=== PATIENT | female | born 1940 | race Caucasian/White ===

== ENCOUNTER 2016-07-07 12:11 | Emergency (ER) | payer MEDICARE, OTHER ==
[2016-04-30 10:07] VITALS: BMI 19.9
[~2016-07-07 12:11] MED LIST: BAYER CHEWABLE81 MG PO; CALCIUM 500 + D1 TAB PO; COLACE100 MG PO; DEPAKOTE SPRIN125 MG PO; DULCOLAX5 MG PO; FISH OIL 500 MG1 CAP; FISH OIL 500 MG1 CAP PO; FLUTICASONE PRO16 GM NASAL; GLUCOSAMINE HC500 MG; GLUCOSAMINE HC500 MG PO; IBUPROFEN400 MG PO; LOZOL 2.5 MG T2.5 MG; MIRALAX17 GM PO; OMNICEF300 MG PO; PLAVIX75 MG PO; RYTHMOL225 MG PO; SYNTHROID100 MCG PO; SYNTHROID25 MCG; SYNTHROID25 MCG PO; SYNTHROID50 MCG PO; TRAZODONE HCL150 MG PO; XANAX0.5 MG PO; ZOLOFT25 MG PO; ZOLOFT50 MG PO
== END 2016-07-07 17:24 | disposition left against medical advice (07) ==
LOC: D.ER 12:11
DX: S72.001A Fracture of unspecified part of neck of right femur, initial encounter for closed fracture (principal); W01.0XXA Fall on same level from slipping, tripping and stumbling without subsequent striking against object, initial encounter; Y93.89 Activity, other specified; Y92.019 Unspecified place in single-family (private) house as the place of occurrence of the external cause; M25.561 Pain in right knee

== ENCOUNTER → 2016-11-19 18:03 | Outpatient (CLI) | payer MEDICARE, OTHER ==
[2016-04-30 10:07] VITALS: BMI 19.9
== END | disposition home or self-care (01) ==
LOC: D.CT 18:03
DX: K56.60 Unspecified intestinal obstruction (principal)

== ENCOUNTER 2016-11-19 20:35 | Inpatient (IN) | payer MEDICARE, OTHER ==
[~2016-11-19] VITALS: Ht 157.5 cm; Wt 50.9 kg
[2016-11-19 22:31] LABS: BASOPHILS 0.5 % (0-2); EOSINOPHILS 1.2 % (0-7); HEMATOCRIT 40.9 % (36.0-48.0); HEMOGLOBIN 13.9 g/dL (12-16); LYMPHOCYTES 35.7 % (15-50); MCH 33.3 pg (26.0-34.0); MCV 97.8 fL (80.0-100.0); MEAN PLATELET VOLUME 10.2 fL (7.4-10.4); NEUTROPHILS 53.6 % (40-80); RBC 4.18 10x6/uL (4.00-5.40); WBC 5.7 10x3/uL (4.8-10.8)
[2016-11-19 22:40] LABS: ALBUMIN 3.7 g/dL (3.4-5.0); ALKALINE PHOSPHATASE 58 U/L (46-116); ALT (SGPT) 20 U/L (10-68); CALC OSMOLALITY 274 mosm/kg (275-300); CALCIUM 8.7 mg/dL (8.5-10.1); CARBON DIOXIDE 28.2 mmol/L (21.0-32.0); CHLORIDE - SERUM 99 mmol/L (98-107); CREATININE - SERUM 0.6 mg/dL (0.6-1.3); GLUCOSE 85 mg/dL (74-106); POTASSIUM - SERUM 3.7 mmol/L (3.5-5.1); PROTEIN - SERUM 7.6 g/dL (6.4-8.2); SODIUM 137 mmol/L (136-145); UREA NITROGEN 18 mg/dL (7-18); eGFR NON AFRICAN AMERICAN > 90 mL/min (90-120)
[2016-11-19 22:57] LABS: PLATELET COUNT 205 10x3/uL (130-400)
--- NOTE | 2016-11-20 00:10 | NUR ---
RECEIVED PT FROM ER VIA WHEELCHAIR TO ROOM 1221. INTRODUCED SELF. V/S TAKEN. ROUTINE INITIAL ASSESSMENT AND HISTORY DONE. ORIENTED TO ROOM AND BED CONTROLS. STATUS BOWEL OBSTRUCTION. PLAN OF CARE INITIATED.
[2016-11-20 00:15] VITALS: BP 120/79; Ht 157.5 cm; Wt 50.9 kg
--- NOTE | 2016-11-20 01:30 | NUR ---
D5LR STARTED @ 100cc/hr VIA IV PUMP. NPO--PT AWARE. NO NAUSEA OR VOMITING NOTED.
--- NOTE | 2016-11-20 03:00 | NUR ---
EYES CLOSED. LEFT UNDISTURBED.
[2016-11-20 04:56] VITALS: BP 129/71
--- NOTE | 2016-11-20 06:10 | NUR ---
SLEPT FAIRLY DURING THE NIGHT. CONTINUING PLAN OF CARE.
[2016-11-20 07:05] VITALS: BP 113/67
--- NOTE | 2016-11-20 07:05 | NUR ---
BEDSIDE SHIFT REPORT RECEIVED. PT CURRENTLY AA&O X 4 SITTING UP IN BED. PT DENIES PAIN AT PRESENT. NEEDS ASSESSED. PT REQUEST A JENNIFER OF TISSUE, TOOTH BRUSH AND PASTE AND A COMB. ITEMS PROVIDED. SHIFT ASSESSMENT COMPLETED AT THIS TIME. BREATH SOUNDS CL\\=, ABD SOFT, NON DISTENDED AND PT DENIES TENDERNESS. PT REPORTS HAVING A SMALL LOOSE STOOL W/"SEVERAL" SMALL PIECES OF FORMED STOOL THIS AM. NO NAUSEA/VOMITING REPORTED. PEDAL PULSES PRESENT X 2. NO EDEMA NOTED TO LOWER EXTREMITIES. PT HAS FULL ROM. PIV TO R FOREARM WNL W/OUT REDNESS OR SWELLING. D5LR INFUSING AT 100ML/HR. AM SHIFT POC DISCUSSED W/PT. PT VERBALIZES UNDERSTANDING AND IS AGREEABLE. BED LOW, SIDE RAILS UP X 2. CALL LIGHT AND PHONE AT PT'S SIDE.
--- NOTE | 2016-11-20 08:00 | NUR ---
ROUNDS MADE. PT SITTING UP IN BED WATCHING TV. PT QUESTIONS WHEN MD WILL ROUND. PT INFORMED THIS RN UNSURE, BUT HOPEFULLY SOON. BED LOW, SIDE RAILS UP X 2. CALL LIGHT AND PHONE AT PT'S SIDE.
--- NOTE | 2016-11-20 08:42 | NUR ---
PT RINGS CALL LIGHT. THIS RN TO BEDSIDE. PT RQUESTING THIS RN CALL DR MURGUIA'S TO MAKE SURE MD KNOWS TO COME SEE PT. DR MURGUIA'S OFFICE CALLED. THIS RN INFORMED THAT MD SHOULD KNOW PT IS HERE, BUT OFFICE TO SEND A TEXT TO MD AND ELECTRIC SWITCH TESTER TO REMIND BOTH TO COME SEE PT. PT INFORMED.
--- NOTE | 2016-11-20 09:29 | NUR ---
ROUNDS MADE. PT LYING AWAKE IN BED WATCHING TV. DENIES PAIN OR NEEDS AT THIS TIME.
--- NOTE | 2016-11-20 11:23 | NUR ---
PT RETURNING FROM BR. REPORTS IV SEENS TO BE OOZING BLOOD. SITE INSPECTED. SCANT BLOOD NOTED. BANDAID PLACED OVER SITE. IV SITE WNL. W/OUT SWELLING, REDNESS OR TENDERNESS. PT DOES NOT WISH TEGADERM REMOVED FOR FURTHER INSPECTION AT THIS TIME. PT TO SITTING IN CHAIR AT SIDE OF BED.
[2016-11-20 12:15] VITALS: BP 99/76
--- NOTE | 2016-11-20 13:14 | NUR ---
PT REPORTS SHE SPOKE W/DR SHI'S OFFICE AND WAS ONCE AGAIN INFORMED THAT DR MURGUIA IS IN THE HOSPITAL AND IS AWARE THAT SHE NEEDS TO ROUND ON PT. PT REQUEST TO BE ABLE TO AMBULATE IN HALLS. PT ASSISTED W/DISCONNECTED PUMP. PT TO AMBULATE IN HALLS AT THIS TIME.
--- NOTE | 2016-11-20 13:30 | NUR ---
PT TO NURSING DESK REQUEST TO KNOW IF THIS RN HAS HEARD FROM THE ROUNDING MD. PT CONCERNED THAT SHE HAS NOT RECEIVED ANY OF THE MEDICATIONS THAT SHE NORMAL TAKES DAILY AT HOME. NPO TEACHING PROVIDED. PT REQUEST THIS RN CALL SOMEONE TO SEE WHEN A MD MAY BE TO SEE HER. [facility] CALLED AT 2150. INFORMED OF PT'S CONCERNS. SHERMAN WILLS RESPONDS W/SOMEONEWILL BE TO SEE HER TODAY. PT IFNFORMED. PT RETURNS TO BED TO READ. DENIES NEEDS AT THIST VIVIANA.
--- NOTE | 2016-11-20 14:00 | NUR ---
ROUNDS MADE. PT RESTING QUIETLY TO LEFT SIDE FACING AWAY FROM THE DOOR. RESP EVEN. PT LEFT UNDISTURBED AT THIS TIME.
--- NOTE | 2016-11-20 15:00 | NUR ---
PT UP AMBULATING IN ROOM. PT ASSISTED W/STRAIGTENING BLANKETS ON BED. PT RETURNS TO BED AT THIS TIME TO WATCH TV.
--- NOTE | 2016-11-20 15:42 | NUR ---
JOHNATHON FROM DR MURGUIA [facility] TO SEE PT AT THIS TIME.
--- NOTE | 2016-11-20 15:49 | NUR ---
lab here for blood specimen draw.
--- NOTE | 2016-11-20 15:55 | NUR ---
pharmacy called to bring protonix for admin at [email or web address] with
[2016-11-20 15:59] LABS: BASOPHILS 0.7 % (0-2); EOSINOPHILS 1.3 % (0-7); HEMOGLOBIN 14.1 g/dL (12-16); LYMPHOCYTES 35.6 % (15-50); MCH 32.9 pg (26.0-34.0); MCHC 33.6 g/dL (31.0-37.0); MCV 97.9 fL (80.0-100.0); MEAN PLATELET VOLUME 10.3 fL (7.4-10.4); MONOCYTES 11.2 % (2-11); NEUTROPHILS 51.2 % (40-80); PLATELET COUNT 204 10x3/uL (130-400); RBC 4.29 10x6/uL (4.00-5.40); RDW 13.9 % (11.5-14.5); WBC 4.5 10x3/uL (4.8-10.8)
[2016-11-20 16:10] LABS: AMYLASE - SERUM 41 U/L (25-115); LIPASE 209 U/L (73-393)
--- NOTE | 2016-11-20 16:30 | NUR ---
REC'D PT AMBULATORY FROM L&D TO ROOM 1223. PT PUSHING IN CRIB TO ROOM FOR PT'S ORDERED AMBULATION Q 2 TIMES DAILY. SIG OTHER W/PT. PT PAIN AND NEEDS ASSESSED. PT REPORTS MILD ABD DISCOMFORT, SHOULDER AND RT RIB PAIN. RATES INCISIONAL PAIN 3/10. MOTRIN OFFERED. PT ACCEPTS. Alla STEELE RN TO MEDICATE W/MOTRIN 600MG PO. NO OTHER NEEDS VOICED AT THIS TIME.
--- NOTE | 2016-11-20 16:33 | NUR ---
pt sitting up in chair at side of bed. chicken broth, jello and apple juice served per pt's request forsomething to eat.
--- NOTE | 2016-11-20 17:15 | NUR ---
PT RINGS CALL LIGHT. THIS RN TO ROOM. PT REPORTS SHE WAS ABLE TO PROVIDE URINE SPECIMEN IN NUNS CAP PROVIDED. SPECIMEN COLLECTED AND SENT TO LAB.
--- NOTE | 2016-11-20 17:35 | NUR ---
THIS RN TO ROOM TO PLACE TELEMTRY ON PT. PT AT THIS TIME REFUSES TELEMETRY MONITORING. PT STATES "ARE THEY REALLY GOING TO DO THAT? I KNOW I HAVE A FIB OCCASIONALLY. THE MONITOR WOULD JUST BE ANOTHER AGGERVATION." TELEMETRY NOTIFIED.
[2016-11-20 17:36] LABS: APPEARANCE CLEAR (CLEAR); BILIRUBIN NEGATIVE (NEGATIVE); COLOR YELLOW (YELLOW); GLUCOSE NEGATIVE (NEGATIVE); KETONE SMALL mg/dL (NEGATIVE); LEUKOCYTE ESTERASE NEGATIVE (NEGATIVE); NITRITE NEGATIVE (NEGATIVE); PROTEIN NEGATIVE (NEGATIVE); SPECIFIC GRAVITY 1.005 (1.005-1.020); UROBILINOGEN NORMAL (NORMAL)
--- NOTE | 2016-11-20 17:40 | NUR ---
PT SITTING UP IN CHAIR AT THIS TIME TO EAT CLEAR LIQUID DIET SERVED.
--- NOTE | 2016-11-20 17:43 | NUR ---
DR MURGUIA TO PT'S ROOM AT THIS TIME. AFTER VISIT. MD NOTIFIED THAT PT IS REFUSING TELEMETRY AT THIS TIME. MD GIVES VERBAL ORDER THAT AFTER PT RECEIVES SUPPOSITORY, IF IT DOESN'T WORK, PT HAVE AN ENEMA.
--- NOTE | 2016-11-20 17:49 | NUR ---
PT HAS FINISHED CLEAR LIQUID DIET. SPOUSE TO ROOM AT THIS TIME TO VISIT W/PT. PT REQUEST TO WAIT UNTIL HE LEAVES TO RECEIVE DULCOLAX SUPPOSITORY. NO FURTHER NEEDS VOICED AT THISTIME.
--- NOTE | 2016-11-20 18:27 | NUR ---
PT REPORTS SHE READY TO RECEIVE DULCOLAX SUPP. WILL REPORT TO PM SHIFT.
--- NOTE | 2016-11-20 18:40 | NUR ---
REPORT GIVEN TO ON COMING PM SHIFT
[2016-11-20 19:45] VITALS: BP 114/59
--- NOTE | 2016-11-20 19:45 | NUR ---
AWAKE DURING INITIAL ROUNDS. INTRODUCED SELF. V/S TAKEN. ASSESSMENT DONE. STATUS Dx: BOWEL OBSTRUCTION. IVF D5LR TO R FA @ 100cc/hr. IV SITE OK. AGREED TO HAVE THE DULCOLAX SUPPOSITORY.
--- NOTE | 2016-11-20 20:28 | NUR ---
WENT TO THE BATHROOM. HAD SOME RESULT FROM SUPPOSITORY.
--- NOTE | 2016-11-20 21:10 | NUR ---
HS MEDS GIVEN. SEE E-MAR.
--- NOTE | 2016-11-20 23:31 | NUR ---
UP TO THE BATHROOM TO VOID.
--- NOTE | 2016-11-21 01:00 | NUR ---
PT STATES UNABLE TO SLEEP AND TAKES TRAZODONE AT HOME. INFORMED PT WILL NEED TO GET MEDICATION RE-ORDERED. CALL PLACED TO [facility].
[2016-11-21 01:10] VITALS: BP 113/64
--- NOTE | 2016-11-21 01:39 | NUR ---
TRAZODONE 150mg 1tab PO GIVEN FOR SLEEP.
--- NOTE | 2016-11-21 02:20 | NUR ---
Pt up to bathroom. Called nurse into room while on toilet. Provided clean brief and wet wipes as requested. Noted small amount of liquid loose stools in toilet. Pt also voided at this time. Upon standing pt turned around and vomited small amount of yellow liquid into toilet. Offered pt PRN nausea/vomiting med. Pt refused. Assisted pt back into bed. Call light in reach. Bed low. SR upx2. No additional needs voiced.
--- NOTE | 2016-11-21 04:02 | NUR ---
CLOTH FINISHING RANGE OPERATOR CHIEF HERE TO DRAW AM LAB. PROTONIX 40mg IV GIVEN. SEE E-MAR.
[2016-11-21 04:30] LABS: BASOPHILS 0.4 % (0-2); EOSINOPHILS 1.5 % (0-7); HEMOGLOBIN 11.9 g/dL (12-16); LYMPHOCYTES 28.3 % (15-50); MEAN PLATELET VOLUME 10.2 fL (7.4-10.4); MONOCYTES 14.6 % (2-11); NEUTROPHILS 55.2 % (40-80); PLATELET COUNT 169 10x3/uL (130-400); RBC 3.61 10x6/uL (4.00-5.40); RDW 13.6 % (11.5-14.5); WBC 4.7 10x3/uL (4.8-10.8)
[2016-11-21 05:05] LABS: ALBUMIN 2.9 g/dL (3.4-5.0); ALKALINE PHOSPHATASE 39 U/L (46-116); ALT (SGPT) 17 U/L (10-68); CALCIUM 7.8 mg/dL (8.5-10.1); CARBON DIOXIDE 27.1 mmol/L (21.0-32.0); CHLORIDE - SERUM 108 mmol/L (98-107); CREATININE - SERUM 0.5 mg/dL (0.6-1.3); SODIUM 140 mmol/L (136-145); eGFR NON AFRICAN AMERICAN > 90 mL/min (90-120)
[2016-11-21 05:06] LABS: CALC OSMOLALITY 278 mosm/kg (275-300); GLUCOSE 129 mg/dL (74-106); POTASSIUM - SERUM 3.1 mmol/L (3.5-5.1); PROTEIN - SERUM 5.5 g/dL (6.4-8.2); UREA NITROGEN 6 mg/dL (7-18)
--- NOTE | 2016-11-21 06:11 | NUR ---
SYNTHROID MED GIVEN. SEE E-MAR.
--- NOTE | 2016-11-21 07:30 | NUR ---
PT IS RECEIVED THIS AM WALKING AROUND IN ROOM. VSS. GEN- AWAKE AND ALERT. LUNGS- CLEAR. HEART- RRR. ABD- SOFT, NT. BS +. EXT- NO EDEMA NOTED. IV PATENT R FOREARM WITH D5 LR @100 CC INFUSING. BED IS LOW, SIDE RAILS UP X 2 AND CALL LIGHT IN REACH. PT STATES THAT SHE IS PASSING FLATUS. NO BM.
[2016-11-21 07:45] VITALS: BP 100/69
--- NOTE | 2016-11-21 08:30 | NUR ---
PT UP AMBULATING IN HALLWAY. PTS ARRIVED.
--- NOTE | 2016-11-21 08:44 | NUR ---
PT IS UP AMBULATING IN HALLWAY. OFFERS NO COMPLAINTS. IS WITH HER.
--- NOTE | 2016-11-21 09:30 | NUR ---
PT'S 0900 MEDS GIVEN. PT STATES THAT SHE WOULD LIKE TO SEE DR MURGUIA TO FING OUT WHAT IS GOING ON. SHE STATES THAT SHE DOES NOT KNOW ANYTHING. SHE ALSO IS ASKING ABOUT HER HOME MEDS WHICH NEED TO BE ADDRESSED. I KPAGED [facility]. SHE STATES THAT ONE OF THEM WILL BE HERE TO SEE HER BUT SHE DOES NOT KNOW WHEN. MESSAGE GIVEN TO PT.
--- NOTE | 2016-11-21 10:46 | NUR ---
RECEIVED PTS LISA FROM PHARMACY. TOOK IT TO GIVE TO HER AND SHE STATES SHE HAS ONE AT BEDSIDE. SHE HAS ALREADY USED THIS AM ABOUT 0800.
--- NOTE | 2016-11-21 10:47 | NUR ---
PT IS SITTING UP IN CHAIR READING PAPER. OFFERS NO COMPLAINTS.
--- NOTE | 2016-11-21 12:58 | NUR ---
PT IS SITTING UP IN CHAIR. 1200 MEDS RECEIVED FROM PHARMACY AND GIVEN. PT OFFERS NO OTHER COMPLAINTS
--- NOTE | 2016-11-21 13:05 | NUR ---
TWO DUCOLAX SUPP GIVEN.
--- NOTE | 2016-11-21 14:00 | NUR ---
PT HAD LOOSE BOWEL MOVEMENT.
--- NOTE | 2016-11-21 14:30 | NUR ---
PT IS SITTING UP IN CHAIR VISITING WITH A FRIEND. PT OFFERS NO COMPLAINTS.
--- NOTE | 2016-11-21 15:15 | NUR ---
PT HAD A BOWEL MOVEMENT. NOT LOOSE LAST ONE.
--- NOTE | 2016-11-21 15:48 | NUR ---
PT IS RESTING IN BED. BED IS LOW, SIDE RAILS UP X 2 AND CALL LIGHT IN REACH.
--- NOTE | 2016-11-21 16:57 | NUR ---
PT IS LYING IN BED, RESTING. HER IV WAS SALINE LOCKED.
--- NOTE | 2016-11-21 17:09 | NUR ---
PT IS UP TO BATHROOM. NEEDED NEW GOWN. SHE HAD BM. STILL LOOSE. HER GOWN WAS CHANGED AND SHE IS BACK IN BED.
[2016-11-21 19:58] VITALS: BP 92/56
--- NOTE | 2016-11-21 19:58 | NUR ---
PT RECEIVED SITTING UP IN CHAIR AT THIS TIME AAOX3. VSS. ASSESSMENT COMPLETED PER FLOW SHEET AT THIS TIME. S/L NOTED TO RIGHT FOREARM, DRESSING CDI. LUNG SOUNDS CLEAR BILATERALLY. BOWEL SOUNDS ACTIVE X4 QUADRENTS. PT RATES PAIN 2/10 STATES IT IS SOME SMALL CRAMPING. PEDAL PULSES EQUAL BILATERALLY. PT DENIES NEEDS AT THIS TIME. BED LOW. PHONE AND CALL LIGHT IN REACH. SRX2.
--- NOTE | 2016-11-21 21:13 | NUR ---
PM MEDS GIVEN AT THIS TIME. PT DENIES OTHER NEEDS. BED LOW. PHONE AND CALL LIGHT IN REACH. SRX2.
--- NOTE | 2016-11-21 22:23 | NUR ---
PT RESTING QUIETLY AT THIS TIME WITH EYES CLOSED. RESPIRATIONS EVEN, NON-LABORED. NO ACUTE DISTRESS NOTED AT THIS TIME. BED LOW. PHONE AND CALL LIGHT IN REACH. SRX2.
--- NOTE | 2016-11-21 23:30 | NUR ---
PT RESTING QUIETLY WITH EYES CLOSED. AROUSED EASILY. VSS. PT GETTING UP TO USE RESTROOM AT THIS TIME. DENIES NEEDS. BED LOW. PHONE AND CALL LIGHT IN REACH. SRX2.
[2016-11-21 23:31] VITALS: BP 102/60
[2016-11-22 03:07] VITALS: BP 109/58
--- NOTE | 2016-11-22 03:07 | NUR ---
PT RESTING QUIETLY AT THIS TIME WITH EYES CLOSED. AROUSED EASILY. VSS. ADMINISTERED PROTONIX IVP PER ORDERS AT THIS TIME. PT DENIES NEEDS. BED LOW. PHONE AND CALL LIGHT IN REACH. SRX2.
--- NOTE | 2016-11-22 05:33 | NUR ---
PT RESTING QUIETLY AT THIS TIME WITH EYES CLOSED. AROUSED EASILY. SYNTHROID PO GIVEN PER ORDERS. PT DENIES OTHER NEEDS. BED LOW. PHONE AND CALL LIGHT IN REACH. SRX2.
[2016-11-22 08:45] LABS: BASOPHILS 0.7 % (0-2); EOSINOPHILS 5.1 % (0-7); HEMATOCRIT 36.7 % (36.0-48.0); HEMOGLOBIN 12.4 g/dL (12-16); LYMPHOCYTES 49.3 % (15-50); MCH 33.3 pg (26.0-34.0); MCHC 33.8 g/dL (31.0-37.0); MCV 98.7 fL (80.0-100.0); MEAN PLATELET VOLUME 10.5 fL (7.4-10.4); NEUTROPHILS 36.9 % (40-80); PLATELET COUNT 199 10x3/uL (130-400); RBC 3.72 10x6/uL (4.00-5.40); WBC 4.1 10x3/uL (4.8-10.8)
--- NOTE | 2016-11-22 08:48 | NUR ---
NUTRITION MONITORING & EVAL PROVIDED PT WITH SOFT DIET INFORMATION. ANSWERED PT QUESTIONS. RD FOLLOWING
[2016-11-22 09:02] LABS: ALBUMIN 3.1 g/dL (3.4-5.0); ALKALINE PHOSPHATASE 44 U/L (46-116); ALT (SGPT) 16 U/L (10-68); BILIRUBIN - TOTAL 0.49 mg/dL (0.2-1.3); CALCIUM 8.1 mg/dL (8.5-10.1); CARBON DIOXIDE 26.3 mmol/L (21.0-32.0); CHLORIDE - SERUM 107 mmol/L (98-107); CREATININE - SERUM 0.6 mg/dL (0.6-1.3); POTASSIUM - SERUM 3.5 mmol/L (3.5-5.1); PROTEIN - SERUM 6.3 g/dL (6.4-8.2); SODIUM 140 mmol/L (136-145); eGFR NON AFRICAN AMERICAN > 90 mL/min (90-120)
[2016-11-22 09:03] LABS: CALC OSMOLALITY 274 mosm/kg (275-300); GLUCOSE 78 mg/dL (74-106); UREA NITROGEN 4 mg/dL (7-18)
--- NOTE | 2016-11-22 09:50 | NUR ---
PT UP TO BATHROOM. HAD BM WHICH IS BECOMING MORE FORMED INSTEAD OF LIQUID. AM MEDS GIVEN. PT IS SITTING IN CHAIR. CALL LIGHT IN REACH.
--- NOTE | 2016-11-22 16:51 | NUR ---
SALINE LOCK D'CD WITH TIP INTACT. DISCHARGE INSTRUCTIONS GIVEN AND DISCUSSED WITH PT. PT INSTRUCTED TO FU WITH HER PRIMARY CARE DR DINH OR JEANA. PT WAS TAKEN TO VEHICLE BY WHEELCHAIR.
== END 2016-11-22 17:10 | disposition home or self-care (01) | DRG 389 ==
LOC: D.ER 20:35 → D.WS 23:09
PROVIDERS: Emergency Medicine; ADMIT Family Medicine
DX: K56.60 Unspecified intestinal obstruction (principal); N39.0 Urinary tract infection, site not specified; F05 Delirium due to known physiological condition; E03.9 Hypothyroidism, unspecified; I48.91 Unspecified atrial fibrillation; K59.00 Constipation, unspecified; I25.10 Atherosclerotic heart disease of native coronary artery without angina pectoris; Z95.5 Presence of coronary angioplasty implant and graft; G30.9 Alzheimer's disease, unspecified; F02.80 Dementia in other diseases classified elsewhere, unspecified severity, without behavioral disturbance, psychotic disturbance, mood disturbance, and anxiety; F41.8 Other specified anxiety disorders

== ENCOUNTER → 2017-01-07 08:29 | Outpatient (CLI) | payer MEDICARE, OTHER ==
[2016-11-20 00:15] VITALS: BMI 20.5
== END | disposition home or self-care (01) ==
LOC: D.MRI 08:29
DX: G25.0 Essential tremor (principal); F41.1 Generalized anxiety disorder

== ENCOUNTER → 2017-02-26 06:54 | Outpatient (CLI) | payer MEDICARE, OTHER ==
[2016-11-20 00:15] VITALS: BMI 20.5
== END | disposition home or self-care (01) ==
LOC: D.RAD 02-25 10:00 → D.OPS 06:54 → D.RAD 09:00
DX: M16.0 Bilateral primary osteoarthritis of hip (principal)

== ENCOUNTER 2019-02-22 08:37 | Emergency (ER) | payer MEDICARE, OTHER ==
[~2019-02-22] VITALS: Ht 157.5 cm; Wt 58.2 kg
[2019-02-22 08:42] VITALS: BP 122/74; Ht 157.5 cm; Wt 58.2 kg
[2019-02-22] MEDS ORDERED: TYLENOL W/CODEI1 TAB PO (10:24)
[2019-02-22] MEDS ORDERED: CLEOCIN HCL300 MG PO (10:24)
== END 2019-02-22 10:32 | disposition home or self-care (01) ==
LOC: D.ER 08:37
DX: S01.81XA Laceration without foreign body of other part of head, initial encounter (principal); W19.XXXA Unspecified fall, initial encounter; S02.5XXA Fracture of tooth (traumatic), initial encounter for closed fracture

== ENCOUNTER 2020-03-26 14:00 | Outpatient (CLI) | payer MEDICARE, OTHER ==
[2019-02-22 08:42] VITALS: BMI 23.4
[~2020-03-26 14:00] MED LIST changes: +CLEOCIN HCL300 MG PO; +TYLENOL W/CODEI1 TAB PO
== END 2020-03-26 23:59 | disposition home or self-care (01) ==
LOC: D.MAMMO 14:00
PROVIDERS: ATTEND Family Medicine
DX: Z12.31 Encounter for screening mammogram for malignant neoplasm of breast (principal)